=== PATIENT | female | born 1995 | race Caucasian/White ===

== ENCOUNTER 2020-10-15 17:19 | Outpatient (REF) | payer OTHER, SELFPAY ==
[2020-10-15 17:49] LABS: COVID-19 Test Positive (Negative)
== END 2020-10-15 17:20 | disposition home or self-care (01) ==
LOC: HO.LAB 17:19
PROVIDERS: Visit Provider Internal Medicine
DX: Z20.822 Contact with and (suspected) exposure to COVID-19 (principal)
CPT/HCPCS: 36415; 87635